=== PATIENT | female | born 2000 | race Caucasian/White ===

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

== ENCOUNTER 2019-03-21 14:35 | Emergency (ER) | payer SELFPAY ==
[2019-03-21 15:18] LABS: #Basophils 0.1 thou/uL (0.0-0.2); #Eosinphils 0.2 thou/uL (0.0-0.7); #Lymphocytes 2.4 thou/uL (1.20-3.40); #Monocytes 0.7 thou/uL (0.11-0.59); #Neutrophils 7.6 thou/uL (1.40-6.50); %Basophils 0.9 % (0.0-1.0); %Eosinophils 1.9 % (0.0-10.0); %Lymphocytes 21.5 % (28.0-48.0); %Monocytes 6.4 % (0.0-4.0); %Neutrophils 69.3 % (31.0-61.0); Hemoglobin 13.2 g/dL (12.0-16.0); Mean Corpuscular HGB CONC 34.7 g/dL (32.0-36.0); Mean Corpuscular Hemoglobin 31.4 pg (25.0-35.0); Mean Corpuscular Volume 90.7 fL (78.0-98.0); Mean Platelet Volume 7.6 fL (7.4-10.4); Platelet Count 244 thou/uL (130-400); RBC Distribution Width 11.5 % (11.5-14.5); Red Blood Cell (RBC) Count 4.19 mill/uL (4.00-5.20)
[2019-03-21] MEDS ORDERED: Acetaminophen 500 MG TAB ONE (15:18)
[2019-03-21 15:31] LABS: BHCG - Serum Negative (NEGATIVE); Pregs Control Background? CLEAR/WHITE (CLR/WHITE); Pregs Control Bar Appear? YES (CONTROL BAR)
[2019-03-21 15:33] LABS: ALT (SGPT) 13 U/L (8-55); AST (SGOT) 19 U/L (5-30); Albumin 4.5 g/dL (3.5-5.0); Alkaline Phosphatase 104 U/L (40-100); Anion Gap 15 mmol/L (10-20); BUN (Urea Nitrogen) 6 mg/dL (8.4-21.0); Bilirubin, Total 0.2 mg/dL (0.2-1.2); CK (CPK) 57 U/L (29-168); Calc. Creatinine Clearance 0 mL/min (70-130); Calcium 9.3 mg/dL (7.8-10.44); Carbon Dioxide 25 mmol/L (22-29); Chloride 106 mmol/L (98-107); Estimated GFR-MDRD Greater than 90; Globulin 2.6 g/dL (2.4-3.5); Glucose 102 mg/dL (70-105); Potassium 3.9 mmol/L (3.5-5.1); Protein, Total 7.1 g/dL (6.0-8.3); Sodium 142 mmol/L (136-145)
--- NOTE | 2019-03-21 16:04 | CT ---
CT HEAD WITHOUT CONTRAST: Date: 03/21/19 INDICATION: Headache. Syncope. FINDINGS: Ventricles have normal size and position. No evidence of intracranial mass or hemorrhage. No edema. S inuses and mastoids appear clear. IMPRESSION: Unremarkable head CT. POS: [facility]
[2019-03-21] MEDS ORDERED: Metoclopramide HCl 10 MG/2 ML VIAL ONE (16:12)
[2019-03-21] MEDS ORDERED: Ketorolac Tromethamine 30 MG/ML VIAL ONE (16:12)
--- NOTE | 2019-03-21 16:17 | RAD ---
2 VIEW CHEST: Date: 03/21/19 HISTORY: Syncopal episode. FINDINGS: Lung sylvester are clear. Heart and mediastinum unremarkable. Osseous structures unremarkable. IMPRESSION: Negative chest. POS: [facility]
== END 2019-03-21 16:54 | disposition home or self-care (01) ==
LOC: SCSER 14:35
DX: R55 Syncope and collapse (principal); R51 Headache; F90.9 Attention-deficit hyperactivity disorder, unspecified type; F17.210 Nicotine dependence, cigarettes, uncomplicated; Z71.6 Tobacco abuse counseling
CPT/HCPCS: 70450; 71046; 80053; 82550; 84443; 84484; 84703; 85025; 85379; 96361; 96365; 96375; 99406; J1885; J2765

== ENCOUNTER 2019-04-29 12:54 | Emergency (ER) | payer SELFPAY ==
--- NOTE | 2019-04-29 14:49 | RAD ---
XR Sacrum and Coccyx STANDARD HISTORY: Fall with sacral pain. COMPARISON: None. FINDINGS: The SI joints are symmetric. I do not appreciate any signs of fracture. IMPRESSION: No acute findings.
--- NOTE | 2019-04-29 15:06 | RAD ---
2 VIEWS LUMBOSACRAL SPINE: Date: 04/29/19 COMPARISON: 03/13/14. HISTORY: Fall with back pain. FINDINGS: 2 views of the lumbosacral spine show normal height and alignment of the vertebral bodies and interve rtebral discs without fracture or subluxation. No degenerative changes are seen. IMPRESSION: Unremarkable exam. POS: [facility]
== END 2019-04-29 15:13 | disposition home or self-care (01) ==
LOC: SCSER 12:54
DX: S39.012A Strain of muscle, fascia and tendon of lower back, initial encounter (principal); S30.0XXA Contusion of lower back and pelvis, initial encounter; F90.9 Attention-deficit hyperactivity disorder, unspecified type; F17.210 Nicotine dependence, cigarettes, uncomplicated; Z71.6 Tobacco abuse counseling; W10.9XXA Fall (on) (from) unspecified stairs and steps, initial encounter
CPT/HCPCS: 72100; 72220; 99406

== ENCOUNTER 2019-10-07 14:41 | Emergency (ER) | payer SELFPAY | END 2019-10-07 15:38 | disposition home or self-care (01) | LOC: ERS 14:41 | DX: E86.0 Dehydration (principal); F90.9 Attention-deficit hyperactivity disorder, unspecified type; F17.210 Nicotine dependence, cigarettes, uncomplicated | CPT/HCPCS: 99283 ==

== ENCOUNTER 2022-07-29 00:44 | Emergency (ER) | payer BC, SELFPAY ==
[2022-07-29] MEDS ORDERED: Ketorolac Tromethamine 30 MG/ML VIAL ONE (01:24)
== END 2022-07-29 01:41 | disposition home or self-care (01) ==
LOC: ERS 00:44
DX: S60.222A Contusion of left hand, initial encounter (principal); W22.8XXA Striking against or struck by other objects, initial encounter
CPT/HCPCS: 96372; J1885